=== PATIENT | male | born 1995 | race Asian ===

== ENCOUNTER 2020-02-13 20:19 | Emergency (ER) | payer MEDICAID ==
[~2020-02-13] VITALS: Ht 177.8 cm; Wt 80.7 kg
[2020-02-13 20:35] VITALS: BP_SYST 162
[2020-02-13] MEDS ORDERED: FAMOTIDINE 20 MG TABLET PO ONE (21:15)
[2020-02-13] MEDS ORDERED: methylPREDNISolone SOD SUCC/PF 62.5 MG/ML VIAL IM ONE (21:15)
[2020-02-13] MEDS ORDERED: DIPHENHYDRAMINE INJ 50 MG/ML VIAL IM ONE (21:15)
[2020-02-13 21:45] VITALS: BP_SYST 162
== END 2020-02-13 21:45 | disposition home or self-care (01) ==
LOC: SED 20:19
DX: T78.40XA Allergy, unspecified, initial encounter (principal); X58.XXXA Exposure to other specified factors, initial encounter
CPT/HCPCS: 96372; 99284; J1200; J2930